=== PATIENT | male | born 1980 | race Caucasian/White ===

== ENCOUNTER 2019-06-16 10:23 | Emergency (ER) | payer MEDICAID, OTHER ==
[2019-06-16 10:41] VITALS: BP 117/76
--- NOTE | 2019-06-16 11:17 | UC ---
Ear Complaint HPI - HPI Summary HPI Summary: Mr. Rush woke up this morning with right ear pain. He's been fine up until now without any URI symptoms. He hasn't been swimming. - History of Current Complaint Chief Complaint: UCEar Stated Complaint: RT EAR PAIN Time Seen by Provider: 06/16/19 10:51 Pain Intensity: 8 - Allergies/Home Medications Allergies/Adverse Reactions: Allergies Allergy/AdvReac Type Severity Reaction Status Date / Time No Known Allergies Allergy Verified 06/16/19 10:37 Home Medications: Home Medications NK [No Home Medications Reported] 06/16/19 [History Confirmed 06/16/19] PMH/Surg Hx/FS Hx/Imm Hx Previously Healthy: Yes - Surgical History Surgical History: None - Social History Alcohol Use: None Substance Use Type: None Smoking Status (MU): Heavy Every Day Tobacco Smoker Type: Cigarettes Amount Used/How Often: 1/2 PPD Review of Systems All Other Systems Reviewed And Are Negative: Yes Constitutional: Positive: Negative Skin: Positive: Negative Eyes: Positive: Negative ENT: Positive: Ear Ache Respiratory: Positive: Negative Physical Exam - Summary Physical Exam Summary: He is nontoxic in appearance with stable vitals Triage Information Reviewed: Yes Appearance: Well-Appearing Vital Signs: Initial Vital Signs Temp 97.7 F 06/16/19 10:37 Pulse 72 06/16/19 10:37 Resp 16 06/16/19 10:37 BP 117/76 06/16/19 10:37 Pulse Ox 99 06/16/19 10:37 Vital Signs Reviewed: Yes Eye Exam: Normal ENT: Positive: Other - Tenderness to palpate the tragus with erythematous and irritated looking external canal. I can't see the TM. Ear Complaint Course/Dx - Course Course Of Treatment: He does have some wax in his ear which I recommended he irrigated out. Clinically this seems like an external and I will treat him with oral antibiotics because I don't think the drops will penetrate. We have no angelo - Differential Dx/Diagnosis Provider Diagnosis: Otitis externa Discharge - Sign-Out/Discharge Documenting (check all that apply): Patient Departure All imaging exams completed and their final reports reviewed: No Studies - Discharge Plan Condition: Stable Disposition: HOME Patient Education Materials: Otitis Externa (ED) Referrals: No Primary Care Phys,NOPCP [Primary Care Provider] - - Billing Disposition and Condition Condition: STABLE Disposition: Home
== END 2019-06-16 11:28 | disposition home or self-care (01) ==
LOC: UCCORT 10:23
DX: H60.91 Unspecified otitis externa, right ear (principal); F17.210 Nicotine dependence, cigarettes, uncomplicated
CPT/HCPCS: 99202; G0463